=== PATIENT | male | born 1980 | race Caucasian/White ===

== ENCOUNTER 2017-06-05 00:22 | Emergency (ER) | payer SELFPAY ==
[~2017-06-05] VITALS: Ht 167.6 cm; Wt 56.7 kg
[2017-06-05] MEDS ORDERED: AZITHROMYCIN 250 MG TAB (ZITHROMAX) PO ONE (00:37)
--- NOTE | 2017-06-05 00:38 | ED GU-Male ---
General Stated Complaint: GONORRHEA Source: patient Exam Limitations: no limitations History of Present Illness Date Seen by Provider: Jun 05, 2017 Time Seen by Provider: 00:25 Initial Comments The patient presents to ER by private conveyance with a chief complaint that for the last one day he's had greenish discharge, burning painful urination. He says he had an STD, gonorrhea many years ago in the past and had it treated appropriately and he suspects this was going on today. He is having no fevers or chills. He is having no nausea or vomiting. He has no other significant medical history nor does he take any medicines. He does not have a primary care physician which she follows with. He says he was tested a few years ago for HIV and was negative. Allergies and Home Medications Allergies Coded Allergies: No Known Drug Allergies (Unverified , 06/05/17) Patient Home Medication List Home Medication List Reviewed: Yes Review of Systems Constitutional: No chills, No fever, No malaise EENTM: No ear discharge, No ear pain Respiratory: No cough, No short of breath Gastrointestinal: No abdominal pain, No constipation, No diarrhea, No nausea, No vomiting Genitourinary: burning, discharge, dysuria Past [id number] Hx Patient Social History Alcohol Use: Regular Use Alcohol Beverage of Choice: Whiskey Recreational Drug Use: No Smoking Status: Current Everyday Smoker Type Used: Cigarettes (1 ppd) Recent Foreign Travel: No Contact w/Someone Who Travel: No Physical Exam Vital Signs Vital Signs - First Documented 06/05/17 00:27 Temp 99.0 Pulse 112 Resp 18 B/P (MAP) 133/75 (94) Pulse Ox 95 O2 Delivery Room Air Capillary Refill : General Appearance: WD/WN, no apparent distress HEENT: PERRL/EOMI, pharynx normal Gastrointestinal: normal bowel sounds, non tender, soft Neurologic/Psychiatric: alert, oriented x 3 Progress/Results/Core Measures Suspected Sepsis SIRS Temperature: Pulse: Respiratory Rate: Blood Pressure / Mean: Results/Orders My Orders Orders - SHERRIE STALLWORTH Ceftriaxone Injection (Rocephin Injectio (06/05/17 00:45) Azithromycin Tablet (Zithromax Tablet) (06/05/17 09:00) Ua Culture If Indicated (06/05/17 00:32) Neis Aramis Dna Urine Test (06/05/17 00:32) Chlamydia Dna Urine Test (06/05/17 00:32) Lidocaine 1% Inj 50 Ml (Xylocaine 1% Inj (06/05/17 00:45) Vital Signs/I&O 06/05/17 00:27 Temp 99.0 Pulse 112 Resp 18 B/P (MAP) 133/75 (94) Pulse Ox 95 O2 Delivery Room Air Capillary Refill : Departure Impression Primary Impression: Sexually transmitted disease Disposition: HOME, SELF-CARE Condition: Stable Departure-Patient Inst. Decision time for Depature: 00:37 Referrals: NO,LOCAL PHYSICIAN (PCP/Family) Primary Care Physician Patient Instructions: Chlamydia and Gonorrhea Add. Discharge Instructions: You have been given antibiotics tonight which will treat you completely for gonorrhea or chlamydia. We will test your urine for these and other infections however you should consider following up with a primary care physician or with the health department to do other screening test for syphilis, HIV, hepatitis etc. Return to care if your symptoms worsen. Drink lots of fluids to flush out your urinary system. SHERRIE STALLWORTH Jun 05, 2017 00:38
[2017-06-05] MEDS ORDERED: cefTRIAXone 250 MG (ROCEPHIN) VIAL IM ONE (00:45)
[2017-06-05] MEDS ORDERED: LIDOCAINE 1% INJ 50 ML (XYLOCAINE) VIAL IJ ONE (00:45)
[2017-06-05 00:50] LABS: BILIRUBIN,URINE NEGATIVE (NEGATIVE); CLARITY,URINE SLIGHTLY CLOUDY; COLOR,URINE YELLOW; GLUCOSE, URINE (UA) NEGATIVE (NEGATIVE); KETONES,URINE 2+ (NEGATIVE); LEUKOCYTE ESTERASE ,URINE 3+ (NEGATIVE); NITRITE,URINE NEGATIVE (NEGATIVE); PH,URINE 6 (5-9); PROTEIN,URINE 2+ (NEGATIVE); UROBILINOGEN,URINE 1 MG/DL (NORMAL)
[2017-06-05 00:55] LABS: BACTERIA,URINE TRACE /HPF; SQUAMOUS EPITHELIAL CELL,UR RARE /HPF
[2017-06-05 01:00] VITALS: BP 130/70
[2017-06-05 01:07] LABS: AMPHETAMINE SCREEN, URINE NEGATIVE (NEGATIVE); BARBITURATE SCREEN URINE NEGATIVE (NEGATIVE); BENZODIAZEPINES SCREEN URINE NEGATIVE (NEGATIVE); CANNABINOID SCREEN, URINE POSITIVE (NEGATIVE); COCAINE SCREEN URINE NEGATIVE (NEGATIVE); METHADONE STAT NEGATIVE (NEGATIVE); METHAMPHETAMINE SCREEN URINE S NEGATIVE (NEGATIVE); OPIATE SCREEN URINE NEGATIVE (NEGATIVE); OXYCODONE STAT NEGATIVE (NEGATIVE); PROPOXYPHENE STAT NEGATIVE (NEGATIVE); TRICYCLIC ANTIDEPRESSANTS SCRE NEGATIVE (NEGATIVE)
[2017-06-05] MEDS ORDERED: AZITHROMYCIN 250 MG TAB (ZITHROMAX) PO SCH (09:00)
== END 2017-06-05 01:00 | disposition home or self-care (01) ==
LOC: ER 00:29
DX: A64 Unspecified sexually transmitted disease (principal); F17.210 Nicotine dependence, cigarettes, uncomplicated
CPT/HCPCS: 36415; 80306; 81000; 87088; 87491; 87591; 96372; 99284